=== PATIENT | female | born 1970 | race Caucasian/White ===

== ENCOUNTER → 2024-01-29 | Outpatient (CLI) | payer OTHER | LOC: MHCPAIN 08:35 | DX: M51.26 Other intervertebral disc displacement, lumbar region (principal); M47.896 Other spondylosis, lumbar region; M54.16 Radiculopathy, lumbar region; M79.7 Fibromyalgia; E03.9 Hypothyroidism, unspecified | CPT/HCPCS: G0463 ==

== ENCOUNTER → 2024-02-28 | Outpatient (CLI) | payer OTHER | LOC: MHCPAIN 10:21 | DX: M51.26 Other intervertebral disc displacement, lumbar region (principal); M47.816 Spondylosis without myelopathy or radiculopathy, lumbar region; M79.7 Fibromyalgia; M54.16 Radiculopathy, lumbar region | CPT/HCPCS: G0463 ==

== ENCOUNTER → 2024-04-10 | Outpatient (CLI) | payer OTHER | LOC: MHCPAIN 09:52 | DX: M51.26 Other intervertebral disc displacement, lumbar region (principal); M54.50 Low back pain, unspecified; M47.816 Spondylosis without myelopathy or radiculopathy, lumbar region; M79.7 Fibromyalgia; F41.9 Anxiety disorder, unspecified; F32.A Depression, unspecified; E03.9 Hypothyroidism, unspecified; M25.50 Pain in unspecified joint | CPT/HCPCS: G0463 ==